=== PATIENT | male | born 1980 | race African-American/Black ===

== ENCOUNTER 2019-04-19 06:29 | Emergency (ER) | payer OTHER ==
[2019-04-19 07:32] LABS: ABSOLUTE EOSINOPHILS # (AUTO) 0.1 10^3/uL (0.0-0.6); ABSOLUTE LYMPHOCYTES (AUTO) 1.8 10^3/uL (0.5-4.7); ABSOLUTE MONOCYTES (AUTO) 0.4 10^3/uL (0.1-1.4); ABSOLUTE NEUT (AUTO) 2.2 10^3/uL (1.7-8.2); BASOPHILS % (AUTO) 1.1 % (0-2); EOSINOPHILS % (AUTO) 2.3 % (0-6); HEMATOCRIT 44.8 % (37.9-51.0); HEMOGLOBIN 15.2 g/dL (13.5-17.0); LYMPHOCYTES % (AUTO) 39.2 % (13-45); MEAN CORPUSCULAR HGB CONC 33.9 g/dL (32.0-36.0); MEAN CORPUSCULAR VOLUME 83 fl (80-97); MONOCYTES % (AUTO) 8.7 % (3-13); PLATELET COUNT 240 10^3/uL (150-450); RED BLOOD COUNT 5.43 10^6/uL (4.35-5.55); RED CELL DISTRIBUTION WIDTH 14.7 % (11.5-14.0); SEGMENTED NEUTROPHILS % (AUTO) 48.7 % (42-78); TOTAL CELLS COUNTED % (AUTO) 100 %; WHITE BLOOD COUNT 4.5 10^3/uL (4.0-10.5)
--- NOTE | 2019-04-19 07:46 | ER Document Report ---
Entered by ANGELIKA AGUIRRE SCRIBE 04/19/19 0716 Acting as scribe for:JUAN R BALL MD ED General - General Chief Complaint: Chest Pain Stated Complaint: CHEST PAIN/DIZZY/SHORTNESS OF BREATH Time Seen by Provider: 04/19/19 06:52 Primary Care Provider: CIARRA MCWILLIAMS PA-C [Primary Care Provider] - Follow up as needed Mode of Arrival: Ambulatory Information source: Patient Notes: Patient is a 38-year-old male with hypertension (on amlodipine, metoprolol, hydralazine) that presents to the emergency department today with complaints of chest pain, shortness of breath, nausea, dizziness, and feeling "tired". Patient reports all the symptoms began on April 15 and have become worse since onset. Patient states today is the worst it has been. The patient was referred to endocrinology on 03/15/2019 because of his primary care physician having such a difficult time controlling his blood pressure. Endocrinology did a 24-hour urine collection and based off those results a CT scan was performed for concerns of possible adrenal mass. Patient does not know the results of any of the blood work or CT scan that was performed last week. Patient mentions that his mother at age 42 when giving to him from cardiac complications. Patient also mentions that there is a strong cardiac history on his mother's side of the family. He does not know much about his father's side of the family. TRAVEL OUTSIDE OF THE [place] IN LAST 30 DAYS: No - Related Data Allergies/Adverse Reactions: No Known Allergies Allergy (Verified 04/19/19 06:39) Home Medications: Hyralazine 50mg. AMpodipine 10mg. Metoprolol 200mg. Potassium 20 Meq Past Medical History - General Information source: Patient - Social History Smoking Status: Never Smoker Cigarette use (# per day): No Chew tobacco use (# tins/day): No Smoking Education Provided: No Frequency of alcohol use: None Drug Abuse: None Occupation: Amanda at [employer] Lives with: Spouse/Significant other Family History: CAD - all on mothers side. Patient reports that his mother when giving to him at age 43 because of "heart issues". Uncle on his mother's side in his 50s from cardiac complications. Patient states his sister also has cardiac history., Malignancy - Patient states he does not know much about his father's side but does know he of prostate cancer Patient has suicidal ideation: No Patient has homicidal ideation: No - Past Medical History Cardiac Medical History: Reports: Hx Hypertension - Metoprolol, amlodipine, hydralazine Surgical Hx: Negative Review of Systems - Review of Systems Constitutional: See HPI, Other - "tired" EENT: No symptoms reported Cardiovascular: See HPI, Chest pain, Dizziness Respiratory: See HPI, Short of breath Gastrointestinal: See HPI, Nausea Genitourinary: No symptoms reported Male Genitourinary: No symptoms reported Musculoskeletal: No symptoms reported Skin: No symptoms reported Hematologic/Lymphatic: No symptoms reported Neurological/Psychological: No symptoms reported -: Yes All other systems reviewed and negative Physical Exam - Vital signs Vitals: Temp Pulse Resp BP Pulse Ox 98.0 F 64 18 148/98 H 100 04/19/19 06:47 04/19/19 06:47 04/19/19 06:47 04/19/19 06:47 04/19/19 06:47 - Notes Notes: Physical Exam: General: Alert, appears well. HEENT: Normocephalic. Atraumatic. PERRL. Extraocular movements intact. Orop harynx clear. Neck: Supple. Non-tender. Respiratory: No respiratory distress. Clear and equal breath sounds bilaterally. Cardiovascular: Regular rate and rhythm. No murmur. Quite loud S2. Abdominal: Normal Inspection. Non-tender. No distension. Normal Bowel Sounds. Back: No gross abnormalities. Extremities: Moves all four extremities. Upper extremities: Normal inspection. Normal ROM. Lower extremities: Normal inspection. No edema. Normal ROM. Neurological: Normal cognition. AAOx4. Normal speech. Psychological: Normal affect. Normal Mood. Skin: Warm. Dry. Normal color. Course - Re-evaluation Re-evalutation: 04/19/19 09:47 I did speak with Dr. Conway who is an dip lube operator in the practice with Dr. Orellana. In reviewing the records he found that the patient's lab work done in [place] confirmed low potassium is less than 3.0, and a very high aldosterone level. He had a normal CT scan of the abdomen pelvis on 04/14/2019. It appeared that the plan was to start him back on spironolactone and some other medications and to possibly refer him to [place]. - Vital Signs Vital signs: Temp Pulse Resp BP Pulse Ox 98.0 F 64 12 146/101 H 100 04/19/19 06:47 04/19/19 06:47 04/19/19 09:02 04/19/19 09:02 04/19/19 09:02 - Laboratory Result Diagrams: 04/19/19 07:22 04/19/19 07:22 Laboratory results interpreted by me: 04/19/19 04/19/19 07:22 07:22 RDW 14.7 H Potassium 3.0 L* Carbon Dioxide 34 H Glucose 155 H Creatine Kinase 755 H - Diagnostic Test Radiology reviewed: Image reviewed, Reports reviewed - Chest x-ray is unremarkable he he lost a case the overall I got her to see him I had to see him one morning with the worst headache of his life on probably lost a lot of money in the spring for - EKG Interpretation by Me EKG shows normal: Sinus rhythm, Phelps, Intervals, QRS Complexes. abnormal: ST-T Waves - Nonspecific inferior T abnormalities Rate: Normal - 57 Rhythm: NSR Discharge - Discharge Clinical Impression: SOB (shortness of breath) on exertion, Hypokalemia, Hyperaldosteronism Hypertension Qualifiers: Hypertension type: secondary to endocrine disorders Qualified Code(s): I15.2 - Hypertension secondary to endocrine disorders Condition: Stable Disposition: HOME, SELF-CARE Additional Instructions: Follow-up with your primary care provider today to discuss your recent symptoms of shortness of breath with exertion. Take copies of your lab work and EKG with you. Tell your doctor that the CT scan and lab work has resulted from your testing in [place] and you are found to have very high aldosterone levels with a normal CT scan. RETURN TO THE EMERGENCY ROOM IF ANY NEW OR WORSENING SYMPTOMS. Referrals: CIARRA MCWILLIAMS PA-C [Primary Care Provider] - 04/19/19 Scribe Attestation: 04/19/19 08:08 I personally performed the services described in the documentation, reviewed and edited the documentation which was dictated to the scribe in my presence, and it accurately records my words and actions. I personally performed the services described in the documentation, reviewed and edited the documentation which was dictated to the scribe in my presence, and it accurately records my words and actions.
[2019-04-19 07:49] LABS: ALBUMIN 4.2 g/dL (3.5-5.0); ALKALINE PHOSPHATASE 61 U/L (38-126); ANION GAP 6 (5-19); ASPARTATE AMINO TRANSFERASE 46 U/L (17-59); BILIRUBIN,DIRECT 0.1 mg/dL (0.0-0.4); BILIRUBIN,TOTAL 0.5 mg/dL (0.2-1.3); BLOOD UREA NITROGEN 10 mg/dL (7-20); CARBON DIOXIDE 34 mmol/L (22-30); CHLORIDE 101 mmol/L (98-107); CREATINE KINASE 755 U/L (55-170); GLUCOSE 155 mg/dL (75-110); TOTAL PROTEIN 7.3 g/dL (6.3-8.2)
--- NOTE | 2019-04-19 07:52 | RADIOLOGY REPORT (SQ) ---
EXAM DESCRIPTION: X-ray two view chest. CLINICAL HISTORY: 38 years Male, dyspnea on exertion COMPARISON: None. TECHNIQUE: PA and Lateral views of the chest performed on 04/19/2019 at 7:51 AM FINDINGS: The lungs are well expanded and are clear. The costophrenic sulci are clear. There is no evidence of a pneumothorax. The cardiac silhouette is normal in size. The mediastinal contours are normal. No acute osseous abnormalities are identified. No focal soft tissue abnormalities are identified. IMPRESSION: No evidence of acute intrathoracic disease.
[2019-04-19] MEDS ORDERED: POTASSIUM CHLORIDE 10 MEQ CAPSULE.ER PO ONE (07:56)
--- NOTE | 2019-04-19 07:57 | EKG REPORT ---
SEVERITY:- ABNORMAL ECG - SINUS RHYTHM NONSPECIFIC T ABNORMALITIES, INFERIOR LEADS : Confirmed by: Janiya Santamaria 19-Apr-2019 07:56:29
[2019-04-19 08:23] LABS: NT PRO BNP 55 pg/mL (<125); TROPONIN I < 0.012 ng/mL
[2019-04-19 10:32] VITALS: BP 137/101
== END 2019-04-19 10:31 | disposition home or self-care (01) ==
LOC: ER 06:29
DX: E26.9 Hyperaldosteronism, unspecified (principal); I15.2 Hypertension secondary to endocrine disorders; Z79.899 Other long term (current) drug therapy; E87.6 Hypokalemia; R06.02 Shortness of breath; R07.9 Chest pain, unspecified; R11.0 Nausea; R42 Dizziness and giddiness; R94.31 Abnormal electrocardiogram [ECG] [EKG]; Z82.49 Family history of ischemic heart disease and other diseases of the circulatory system
CPT/HCPCS: 36415; 71046; 80053; 82550; 83880; 84484; 85025; 85379; 93005; 93010; 99285

== ENCOUNTER 2019-11-19 17:33 | Emergency (ER) | payer OTHER ==
--- NOTE | 2019-11-19 18:02 | ER Document Report ---
ED Medical Screen (RME) - General Chief Complaint: High Blood Sugar Stated Complaint: HIGH BLOOD SUGAR Time Seen by Provider: 11/19/19 17:58 Primary Care Provider: CIARRA MCWILLIAMS PA-C [Primary Care Provider] - Follow up as needed Notes: Patient is a 39-year-old male who presents emergency department for abnormal labs. 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 On his way home, he received a phone call from [place] stating that his blood sugar was in the 500s. He was then told to come to the emergency department as soon as possible. States that he did have some polyuria and polydipsia recently. Denies any pain, body aches, chills. Exam: Alert and oriented. I have greeted and performed a rapid initial assessment of this patient. A comprehensive ED assessment and evaluation of the patient, analysis of test results and completion of medical decision making process will be conducted by an additional ED providers. TRAVEL OUTSIDE OF THE [place] IN LAST 30 DAYS: No - Related Data Allergies/Adverse Reactions: No Known Allergies Allergy (Verified 04/19/19 06:39) Past Medical History - Social History Frequency of alcohol use: None Drug Abuse: None - Past Medical History Cardiac Medical History: Reports: Hx Hypertension - Metoprolol, amlodipine, hydralazine Physical Exam - Vital signs Vitals: Temp Pulse Resp BP Pulse Ox 97.9 F 86 16 145/99 H 100 11/19/19 17:37 11/19/19 17:37 11/19/19 17:37 11/19/19 17:37 11/19/19 17:37 Course - Vital Signs Vital signs: Temp Pulse Resp BP Pulse Ox 97.9 F 86 16 145/99 H 100 11/19/19 17:50 11/19/19 17:37 11/19/19 17:37 11/19/19 17:37 11/19/19 17:37 Doctor's Discharge - Discharge Referrals: CIARRA MCWILLIAMS PA-C [Primary Care Provider] - Follow up as needed
[2019-11-19 18:40] LABS: ABSOLUTE EOSINOPHILS # (AUTO) 0.1 10^3/uL (0.0-0.6); ABSOLUTE LYMPHOCYTES (AUTO) 1.8 10^3/uL (0.5-4.7); ABSOLUTE MONOCYTES (AUTO) 0.3 10^3/uL (0.1-1.4); ABSOLUTE NEUT (AUTO) 1.5 10^3/uL (1.7-8.2); EOSINOPHILS % (AUTO) 1.5 % (0-6); HEMOGLOBIN 15.2 g/dL (13.5-17.0); LYMPHOCYTES % (AUTO) 49.5 % (13-45); MEAN CORPUSCULAR HEMOGLOBIN 28.6 pg (27.0-33.4); MEAN CORPUSCULAR HGB CONC 34.5 g/dL (32.0-36.0); MEAN CORPUSCULAR VOLUME 83 fl (80-97); MONOCYTES % (AUTO) 7.3 % (3-13); PLATELET COUNT 223 10^3/uL (150-450); RED BLOOD COUNT 5.32 10^6/uL (4.35-5.55); RED CELL DISTRIBUTION WIDTH 13.6 % (11.5-14.0); SEGMENTED NEUTROPHILS % (AUTO) 40.7 % (42-78); TOTAL CELLS COUNTED % (AUTO) 100 %; WHITE BLOOD COUNT 3.7 10^3/uL (4.0-10.5)
[2019-11-19 18:58] LABS: ALBUMIN 4.9 g/dL (3.5-5.0); ALKALINE PHOSPHATASE 78 U/L (38-126); ANION GAP 11 (5-19); ASPARTATE AMINO TRANSFERASE 50 U/L (17-59); BILIRUBIN,DIRECT 0.3 mg/dL (0.0-0.4); BILIRUBIN,TOTAL 0.9 mg/dL (0.2-1.3); BLOOD UREA NITROGEN 21 mg/dL (7-20); CALCIUM 9.8 mg/dL (8.4-10.2); CARBON DIOXIDE 30 mmol/L (22-30); CHLORIDE 94 mmol/L (98-107); POTASSIUM 4.8 mmol/L (3.6-5.0); TOTAL PROTEIN 8.4 g/dL (6.3-8.2)
[2019-11-19 19:02] LABS: VENOUS BLOOD BASE EXCESS 5.6 mmol/L; VENOUS BLOOD HCO3 32.9 mmol/L (20-32); VENOUS BLOOD PCO2 58.6 mmHg (35-63); VENOUS BLOOD PH 7.37 (7.30-7.42)
[2019-11-19 19:08] LABS: GLUCOSE 484 mg/dL (75-110)
[2019-11-19] MEDS ORDERED: NORMAL SALINE 1000 ML 2,000 ML IV ONE (19:13)
--- NOTE | 2019-11-19 19:47 | ER Document Report ---
ED General - General Chief Complaint: High Blood Sugar Stated Complaint: HIGH BLOOD SUGAR Time Seen by Provider: 11/19/19 17:58 Primary Care Provider: CIARRA MCWILLIAMS PA-C [Primary Care Provider] - Follow up as needed Notes: CHIEF COMPLAINT: Hyperglycemia HPI: 39-year-old male with history of hypertension presenting to the emergency department for hyperglycemia. Patient states he has had polyuria polydipsia over the last week. Patient had an appointment at [place] today regarding an adrenal cyst that they are going to remove and had screening lab work done and was called and told that his blood sugar was greater than 500. He called his PCP and was advised to go to the emergency department. No fever. No abdominal pain. ROS: See HPI - all other systems were reviewed and are otherwise negative Constitutional: no fever Eyes: no drainage, no blurred vision ENT: no runny nose, no sore throat. Positive polydipsia Cardiovascular: no chest pain Resp: no SOB, no cough GI: no vomiting, no diarrhea, no abdominal pain : no dysuria, positive polyuria Integumentary: no rash Allergy: no hives Musculoskeletal: no extremity pain or swelling Neurological: no numbness/tingling, no weakness MEDICATIONS: I agree with the patient medications as charted by the RN. ALLERGIES: I agree with the allergies as charted by the RN. PAST MEDICAL HISTORY/PAST SURGICAL HISTORY: Reviewed and agree as charted by RN. SOCIAL HISTORY: Reviewed and agree as charted by RN. FAMILY HISTORY: No significant familial comorbid conditions directly related to patient complaint EXAM: Reviewed vital signs as charted by RN. CONSTITUTIONAL: Alert and oriented and responds appropriately to questions. Well-appearing; well-nourished HEAD: Normocephalic; atraumatic EYES: PERRL; Conjunctivae clear, sclerae non-icteric ENT: normal nose; no rhinorrhea; moist mucous membranes; pharynx without lesions noted, no uvula edema or deviation, no tonsillar hypertrophy, phonation normal NECK: Supple without meningismus; non-tender; no cervical lymphadenopathy, no masses CARD: RRR; no murmurs, no clicks, no rubs, no gallops; symmetric distal pulses RESP: Normal chest excursion without splinting or tachypnea; breath sounds clear and equal bilaterally; no wheezes, no rhonchi, no rales, pulse oximetry 98% on room air not hypoxic ABD/GI: Normal bowel sounds; non-distended; soft, non-tender, no rebound, no guarding; no palpable organomegaly or masses. BACK: The back appears normal and is non-tender to palpation, there is no CVA t enderness EXT: Normal ROM in all joints; non-tender to palpation; no cyanosis, no effusions, no edema SKIN: Normal color for age and race; warm; dry; good turgor; no acute lesions noted NEURO: Moves all extremities equally; Motor and sensory function intact PSYCH: The patient's mood and manner are appropriate. Grooming and personal hygiene are appropriate. MDM: 39-year-old male presenting with likely new onset diabetes. Blood sugar here in the emergency department is 44. He does not appear to be in DKA, pH is normal. Will aggressively hydrate patient, if blood sugar trends down we will likely start patient on metformin and he may follow-up with his PCP on Friday for further evaluation and management including glucometer, dietary recommendations, nutrition referral TRAVEL OUTSIDE OF THE [place] IN LAST 30 DAYS: No - Related Data Allergies/Adverse Reactions: No Known Allergies Allergy (Verified 04/19/19 06:39) Past Medical History - Social History Smoking Status: Never Smoker Frequency of alcohol use: None Drug Abuse: None Family History: CAD - all on mothers side. Patient reports that his mother when giving to him at age 42 because of "heart issues". Uncle on his mother's side in his 50s from cardiac complications. Patient states his sister also has cardiac history., Malignancy - Patient states he does not know much about his father's side but does know he of prostate cancer Patient has homicidal ideation: No - Past Medical History Cardiac Medical History: Reports: Hx Hypertension - Metoprolol, amlodipine, hydralazine Physical Exam - Vital signs Vitals: Temp Pulse Resp BP Pulse Ox 97.9 F 86 16 145/99 H 100 11/19/19 17:37 11/19/19 17:37 11/19/19 17:37 11/19/19 17:37 11/19/19 17:37 Course - Re-evaluation Re-evalutation: 11/19/19 21:14 Patient's blood sugar is decreasing after IV fluids will give metformin. Will write patient prescription for metformin once daily and close follow-up with PCP with return instructions - Vital Signs Vital signs: Temp Pulse Resp BP Pulse Ox 97.9 F 86 16 145/99 H 100 11/19/19 17:50 11/19/19 17:37 11/19/19 17:37 11/19/19 17:37 11/19/19 17:37 - Laboratory Result Diagrams: 11/19/19 18:20 11/19/19 18:20 Laboratory results interpreted by me: 11/19/19 11/19/19 11/19/19 18:20 18:20 18:20 WBC 3.7 L Lymph % (Auto) 49.5 H Absolute Neuts (auto) 1.5 L Seg Neutrophils % 40.7 L VBG HCO3 32.9 H Sodium 135.2 L Chloride 94 L BUN 21 H Glucose 484 H* Hemoglobin A1c % ALT 80 H Total Protein 8.4 H 11/19/19 18:20 WBC Lymph % (Auto) Absolute Neuts (auto) Seg Neutrophils % VBG HCO3 Sodium Chloride BUN Glucose Hemoglobin A1c % 11.0 H ALT Total Protein Discharge - Discharge Clinical Impression: Hyperglycemia, Diabetes mellitus, new onset Condition: Stable Disposition: HOME, SELF-CARE Instructions: Diabetes ([facility]) Additional Instructions: Take the metformin once daily as prescribed. Follow-up closely with your primary care provider on Friday for reevaluation of your diabetes, make sure that they prescribe you a glucometer to check your blood sugars, make sure they refer you to a etcher photoengraving to discuss dietary recommendations for diabetes management. Limit sugar intake including soda, sweet tea, carbohydrates as discussed. If you have any worsening symptoms at all including increased thirst or urination return for reevaluation Prescriptions: Metformin HCl [Glucophage 500 mg Tablet] 500 mg PO QAM #30 tablet Referrals: CIARRA MCWILLIAMS PA-C [Primary Care Provider] - Follow up as needed
[2019-11-19] MEDS ORDERED: METFORMIN HCL 500 MG TABLET PO ONE (21:14)
[2019-11-19 21:36] VITALS: BP 149/104
== END 2019-11-19 21:37 | disposition home or self-care (01) ==
LOC: ER 17:33
DX: E11.65 Type 2 diabetes mellitus with hyperglycemia (principal); I10 Essential (primary) hypertension; R35.8 Other polyuria; R63.1 Polydipsia; Z79.899 Other long term (current) drug therapy
CPT/HCPCS: 99284; 96360; 96361; 36415; 82962; 85025; 80053; 83036; 82803; J7030